=== PATIENT | male | born 1995 | race Hispanic/Latino ===

== ENCOUNTER 2018-11-15 17:32 | Emergency (ER) | payer OTHER ==
[~2018-11-15] VITALS: Ht 160 cm; Wt 114.3 kg
[~2018-11-15 17:32] MED LIST: ATENOLOL PO; CEPHALEXIN PO; GLIMEPIRIDE PO; JENTADUETO PO; WELCHOL PO
--- OUTSIDE RECORDS SUMMARY | 2018-11-15 17:37 | XMS REPORT | Continuity of Care Document ---
Author Author [employer] Organization [employer] Address Unknown Phone Unavailable Care Team Providers Care Electrician Deck Name Role Phone [place] Information [facility] Unavailable Unavailable Problems Problem Status Onset Date Classification Date Reported Comments Source LWR ABD PAIN Active 11/20/2016 [facility] ACUTE APPENDICITIS Active 11/20/2016 [facility] TYPE 2 DIABETES Active 02/25/2011 [facility] LT FEMUR FRACTURE Active 03/31/2002 [facility] DM (Confirmed) Resolved Problem 11/24/2016 [facility] Osteoporosis Resolved Problem 11/24/2016 [facility] UNSPECIFIED ACUTE APPENDICITIS Active [facility] Medications Medication Details Route Status Patient Instructions Ordering Provider Order Date Source neostigmine (ANES) Route: IV, Drug form: INJ, ONCE, Stop date: 11/21/16 15:13:00 CDT Inactive 11/21/2016 [facility] glycopyrrolate (ANES) Route: IV, Drug form: INJ, ONCE, Stop date: 11/21/16 15:13:00 CDT Inactive 11/21/2016 [facility] ondansetron (ANES) Route: IV, Drug form: INJ, ONCE, Stop date: 11/21/16 15:13:00 CDT Inactive 11/21/2016 [facility] acetaminophen (ANES) Route: IV, Drug form: INJ, ONCE, Stop date: 11/21/16 15:13:00 CDT Inactive 11/21/2016 [facility] lidocaine (ANES) Route: IV, Drug form: INJ, ONCE, Stop date: 11/21/16 15:04:00 CDT Inactive 11/21/2016 [facility] propofol (ANES) Route: IV, Drug form: INJ, ONCE, Stop date: 11/21/16 15:04:00 CDT Inactive 11/21/2016 [facility] fentaNYL (ANES) Route: IV, Drug form: INJ, ONCE, Stop date: 11/21/16 15:04:00 CDT Inactive 11/21/2016 [facility] rocuronium (ANES) Route: IV, Drug form: INJ, ONCE, Stop date: 11/21/16 14:54:00 CDT Inactive 11/21/2016 [facility] Acetaminophen 325 MG / Hydrocodone Bitartrate 10 MG Oral Tablet 1 tab, PO, Q4H, PRN Pain Score 4-6, 0 Refill(s) Active 11/21/2016 [facility] Hydromorphone 0.3 mg, 0.3 mL, Route: IVP, Drug form: INJ, Q3H, Dosing Weight 103.182, kg, PRN Pain Score 4-6, Start date: 11/21/16 14:52:00 CDT, Duration: 30 day, Stop date: 12/21/16 14:51:00 CDT Inactive 11/21/2016 [facility] Acetaminophen 325 MG / Hydrocodone Bitartrate 10 MG Oral Tablet 1 tab, Route: PO, Drug Form: TAB, Dosing Weight 103.182, kg, Q4H, PRN Pain Score 7-10, Start date: 11/21/16 14:52:00 CDT, Duration: 30 day, Stop date: 12/21/16 14:51:00 CDTNotes: Do not exceed 4gm/day of acetaminophen. (Same as: [place] 325/10) Inactive 11/21/2016 [facility] Acetaminophen 325 MG / Hydrocodone Bitartrate 5 MG Oral Tablet 1 tab, Route: PO, Drug Form: TAB, Dosing Weight 103.182, kg, Q4H, PRN Pain Score 4-6, Start date: 11/21/16 14:52:00 CDT, Duration: 30 day, Stop date: 12/21/16 14:51:00 CDTNotes: (Same as: [place] 325/5) Do not exceed 4gm/day of acetaminophen. Inactive 11/21/2016 [facility] midazolam (ANES) Route: IV, Drug form: SOLN, ONCE, Stop date: 11/21/16 14:49:00 CDT Inactive 11/21/2016 [facility] LR 1000 mL INJ (ANES) Route: IV, Total Volume: 1,000, Start date: 11/21/16 14:13:00 CDT, Stop date: 11/21/16 15:13:00 CDT Inactive 11/21/2016 [facility] Calcium Chloride 0.0014 MEQ/ML / Potassium Chloride 0.004 MEQ/ML / Sodium Chloride 0.103 MEQ/ML / Sodium Lactate 0.028 MEQ/ML Injectable Solution 1,000 mL, Rate: 25 ml/hr, Infuse over: 40 hr, Route: IV, Dosing Weight 103.182 kg, Total Volume: 1,000, Start date: 11/21/16 13:18:00 CDT, Duration: 30 day, Stop date: 12/21/16 13:17:00 CDT Inactive 11/21/2016 [facility] Insulin regular 8 unit, 0.08 mL, Route: IV, Drug form: INJ, ONCE, Dosing Weight 103.182, kg, Start date: 11/21/16 12:15:00 CDT, Stop date: 11/21/16 12:15:00 CDTNotes: (Same as: Humulin R and NovoLIN R) WASTE: F/P - Black; E - Municipal Trash Bin (Do not shake) Inactive 11/21/2016 [facility] Insulin, Aspart, Human 2 unit, 0.02 mL, Route: SUB-Q, Drug form: SOLN, Sliding Scale, Dosing Weight 103.182, kg, PRN Blood Glucose Results, Start date: 11/21/16 2:59:00 CDT, Duration: 30 day, Stop date: 12/21/16 2:58:00 CDTNotes: Roll in palms of hands gently; Do not shake vigorously. (Same as: NovoLOG) "single patient use only" WASTE: F/P - Black; E - Municipal Trash Bin Stable for 28 days at room temperature. Expires in days from Date Inactive 11/21/2016 [facility] Glucagon 1 mg, Route: IM, Drug form: PDR/INJ, PRN, Dosing Weight 103.182, kg, PRN Blood Glucose Results, Start date: 11/21/16 2:59:00 CDT, Duration: 30 day, Stop date: 12/21/16 2:58:00 CDT Inactive 11/21/2016 [facility] Dextrose 50% Syringe 25 gm, 50 mL, Route: IVP, Drug Form: INJ, Dosing Weight 103.182, kg, PRN, PRN Blood Glucose Results, Start date: 11/21/16 2:59:00 CDT, Duration: 30 day, Stop date: 12/21/16 2:58:00 CDT Inactive 11/21/2016 [facility] Metformin 750 mg, PO, BID, 0 Refill(s) Active 11/21/2016 [facility] Morphine 4 mg, Route: IVP, ONCE, Dosing Weight 103.182, kg, Priority: STAT, Start date: 11/21/16 0:14:00 CDT, Stop date: 11/21/16 0:14:00 CDT Inactive 11/21/2016 [facility] Zosyn 3.375 gm, Route: IV, ABXQ8H, Dosing Weight 103.182, kg, Start date: 11/21/16 0:00:00 CDT, Duration: 30 day, Stop date: 12/20/16 16:00:00 CDT, ABX Indication: Intra-abdominal InfectionNotes: (Same as: Zosyn) Dosing based on Piperacillin component MEDICATION WASTE Product Size: 3375 mg Product Wasted: ___ mg Inactive 11/21/2016 [facility] Saline Flush 0.9% 10 ml, Route: IVP, Drug Form: INJ, Dosing Weight 103.182, kg, PRN, PRN Line Flush, Start date: 11/20/16 23:58:00 CDT, Duration: 30 day, Stop date: 12/20/16 23:57:00 CDTNotes: (Same as: BD Posiflush) No Longer Active 11/21/2016 [facility] Lactated Ringers 1,000 mL 1,000 mL, Rate: 125 ml/hr, Infuse over: 8 hr, Route: IV, Dosing Weight 103.182 kg, Total Volume: 1,000, Start date: 11/20/16 23:58:00 CDT, Duration: 30 day, Stop date: 12/20/16 23:57:00 CDT No Longer Active 11/21/2016 [facility] Ondansetron 4 mg, 2 mL, Route: IVP, Drug form: INJ, Q6H, Dosing Weight 103.182, kg, PRN Nausea & Vomiting, Start date: 11/20/16 23:58:00 CDT, Duration: 30 day, Stop date: 12/20/16 23:57:00 CDTNotes: (Same as: Zofran) MEDICATION WASTE Product Size: 4 mg Product Wasted: ___ mg No Longer Active 11/21/2016 [facility] Morphine 4 mg, 1 mL, Route: IVP, Drug form: SOLN, Q4H, Dosing Weight 103.182, kg, PRN Pain Score 7-10, Start date: 11/20/16 23:58:00 CDT, Stop date: 12/20/16 23:57:00 CDTNotes: (Same as:MORPhine Sulfate) No Longer Active 11/21/2016 [facility] NS (Bolus) IV 1,000 mL, 1,000 ml/hr, Infuse Over: 1 hr, Route: IV, 1,000, Drug form: INJ, ONCE, Priority: STAT, Dosing Weight 103.182 kg, Start date: 11/20/16 21:43:00 CDT, Duration: 1 doses or times, Stop date: 0 11/20/16 21:43:00 CDT Inactive 11/21/2016 [facility] Zofran 4 mg, 2 mL, Route: IVP, Drug form: INJ, ONCE, Dosing Weight 103.182, kg, Priority: STAT, Start date: 11/20/16 21:43:00 CDT, Stop date: 11/20/16 21:43:00 CDTNotes: (Same as: Zofran) MEDICATION WASTE Product Size: 4 mg Product Wasted: ___ mg Inactive 11/21/2016 [facility] Morphine 4 mg, 1 mL, Route: IVP, Drug form: SOLN, ONCE, Dosing Weight 103.182, kg, Priority: STAT, Start date: 11/20/16 21:42:00 CDT, Stop date: 11/20/16 21:42:00 CDTNotes: (Same as:MORPhine Sulfate) Inactive 11/21/2016 [facility] Saline Flush 0.9% 10 mL, Route: IVP, Drug Form: INJ, Dosing Weight 103.182, kg, PRN, PRN Line Flush, Start date: 11/20/16 20:16:00 CDT, Duration: 30 day, Stop date: 12/20/16 20:15:00 CDTNotes: (Same as: BD Posiflush) No Longer Active 11/21/2016 [facility] Allergies, Adverse Reactions, Alerts No Known Medication Allergies Immunizations No Data Provided for This Section Results Order Name Results Value Reference Range Date Interpretation Comments Source IMMUNOLOGY Hep B Core IgM Negative *NA* (11/21/16 5:57 AM) Negative 11/21/2016 [facility] IMMUNOLOGY Hep A IgM Negative *NA* (11/21/16 5:57 AM) Negative 11/21/2016 [facility] Hep C Ab Negative *NA* (11/21/16 5:57 AM) 11/21/2016 [facility] Hep Bs Ag Negative *NA* (11/21/16 5:57 AM) Negative 11/21/2016 [facility] URINE AND STOOL UA Urobilinogen <=1.0 mg/dL 0.1 - 1.0 11/21/2016 [facility] URINE AND STOOL UA Color Ltyellow 11/21/2016 [facility] URINE AND STOOL UA Blood Negative (11/20/16 11:09 PM) Negative 11/21/2016 [facility] URINE AND STOOL UA Nitrite Negative (11/20/16 11:09 PM) Negative 11/21/2016 [facility] URINE AND STOOL UA Ketones 80 mg/dL Negative mg/dL 11/21/2016 [facility] URINE AND STOOL UA Bili Negative *NA* (11/20/16 11:09 PM) Negative 11/21/2016 [facility] URINE AND STOOL UA Glucose 500 mg/dL Negative mg/dL 11/21/2016 [facility] URINE AND STOOL UA Sq Epi Occasional /LPF Few /LPF 11/21/2016 [facility] URINE AND STOOL UA WBC 1 0 - 5 11/21/2016 [facility] URINE AND STOOL UA Leuk Est Negative (11/20/16 11:09 PM) Negative 11/21/2016 [facility] URINE AND STOOL UA Bacteria Occasional /HPF None Seen /HPF 11/21/2016 [facility] URINE AND STOOL UA Protein 100 mg/dL Negative mg/dL 11/21/2016 [facility] URINE AND STOOL UA pH 5.0 5.0 - 8.0 11/21/2016 [facility] URINE AND STOOL UA Spec Grav 1.036 <=1.030 11/21/2016 [facility] URINE AND STOOL UA Turbidity Clear (11/20/16 11:09 PM) Clear 11/21/2016 [facility] CHEM PANEL eGFR 140 11/21/2016 Result Comment: The eGFR is calculated using the CKD-EPI formula. In most young, healthy individuals the eGFR will be >90 mL/min/1.73m2. The eGFR declines with age. An eGFR of 60-89 may be normal in some populations, particularly the elderly, for whom the CKD-EPI formula has not been extensively validated. Use of the eGFR is not recommended in the following populations:

Individuals with unstable creatinine concentrations, including patients and those with serious co-morbid conditions.

Patients with extremes in muscle mass or diet.

The data above are obtained from the National Kidney Disease Education Program (NKDEP) which additionally recommends that when the eGFR is used in patients with extremes of body mass index for purposes of drug dosing, the eGFR should be multiplied by the estimated BMI. [facility] CHEM PANEL Glucose Lvl 300 70 - 99 11/21/2016 [facility] CHEM PANEL BUN 7 7 - 22 11/21/2016 [facility] CHEM PANEL Sodium Lvl 136 135 - 145 11/21/2016 [facility] CHEM PANEL Potassium Lvl 4.1 3.5 - 5.1 11/21/2016 [facility] CHEM PANEL Calcium Lvl 9.3 8.5 - 10.5 11/21/2016 [facility] CHEM PANEL CO2 22 24 - 32 11/21/2016 [facility] CHEM PANEL Creatinine Lvl 0.62 0.50 - 1.40 11/21/2016 [facility] CHEM PANEL Albumin Lvl 3.9 3.5 - 5.0 11/21/2016 [facility] CHEM PANEL Chloride Lvl 103 95 - 109 11/21/2016 [facility] CHEM PANEL AST 45 0 - 37 11/21/2016 [facility] CHEM PANEL ALT 185 0 - 65 11/21/2016 [facility] CHEM PANEL Alk Phos 131 39 - 136 11/21/2016 [facility] CHEM PANEL Total Protein 8.4 6.4 - 8.4 11/21/2016 [facility]M PANEL Bili Total 1.8 0.2 - 1.3 11/21/2016 [facility] CHEM PANEL AGAP 15.1 10.0 - 20.0 11/21/2016 [facility]M PANEL B/C Ratio 11 6 - 25 11/21/2016 [facility] PAN[facility] A/G Ratio 0.9 0.7 - 1.6 11/21/2016 [facility] CHEM PANEL Globulin 4.5 2.7 - 4.2 11/21/2016 [facility] CHEM PANEL Lipase Lvl 85 73 - 393 11/21/2016 [facility] CHEM PANEL Magnesium Lvl 2.0 1.8 - 2.4 11/21/2016 [facility] HEMATOLOGY Microcyte 1+ *ABN* (11/20/16 9:07 PM) None Seen 11/21/2016 [facility] Segs-Bands # 11.6 1.5 - 8.1 11/21/2016 [facility] Lymphocytes # 0.8 1.0 - 5.5 11/21/2016 [facility] HEMATOLOGY Monocytes # 0.5 0.0 - 0.8 11/21/2016 [facility] RBC Morph Normal (11/20/16 9:07 PM) 11/21/2016 [facility] Basophils 0.2 0.0 - 1.0 11/21/2016 [facility] Lymphocytes 6.3 20.0 - 40.0 11/21/2016 [facility] Monocytes 3.5 2.0 - 12.0 11/21/2016 [facility] Plt Morph Normal (11/20/16 9:07 PM) 11/21/2016 [facility] Segs 90.0 45.0 - 75.0 11/21/2016 [facility] MCH 25.1 27.0 - 31.0 11/21/2016 [facility] Hct 50.7 42.0 - 54.0 11/21/2016 [facility] MCHC 34.0 32.0 - 36.0 11/21/2016 [facility] MCV 73.9 80.0 - 94.0 11/21/2016 [facility] Hgb 17.2 14.0 - 18.0 11/21/2016 [facility] MPV 9.7 7.4 - 10.4 11/21/2016 [facility] RDW 14.2 11.5 - 14.5 11/21/2016 [facility] Platelet 264 133 - 450 11/21/2016 [facility] RBC 6.87 4.70 - 6.10 11/21/2016 [facility] WBC 12.9 3.7 - 10.4 11/21/2016 [facility] Pathology Reports No Data Provided for This Section Diagnostic Reports Report Value Date Source ED Abdomen/Pelvis IV contrast only CT EXAM: CT ABDOMEN AND PELVIS WITH CONTRAST DATE: 11/20/2016 8:16 PM CDT INDICATION: Abdominal pain. COMPARISON: None. TECHNIQUE: Helical CT imaging of the abdomen and pelvis performed from lung bases through the lesser trochanters following the administration of intravenous contrast. Axial, sagittal and coronal multiplanar reconstructions provided. IV contrast: [address] Radiation Dose: JKJ=2628.65 mGy-cm FINDINGS: LOWER CHEST: The lung bases are clear of focal consolidation, pleural effusions, and pneumothorax. The heart is unremarkable without evidence for a pericardial effusion. LIVER: Diffuse fatty infiltration of the liver is identified. GALLBLADDER/BILIARY: Unremarkable. PANCREAS: Unremarkable SPLEEN: Unremarkable ADRENALS: Unremarkable KIDNEYS AND URETERS: Unremarkable BLADDER: Unremarkable STOMACH: Unremarkable. BOWEL: The small bowel is normal in course and caliber without focal wall thickening or evidence for obstruction. The colon is unremarkable. APPENDIX: There is a fluid-filled distended appendix measuring 15 mm in maximum diameter. Multiple appendicoliths are visualized within the lumen, the largest of which measures 9 mm within the base of the appendix on series 2 image 78. Mild inflammatory stranding is visualized. PELVIS: No pelvic masses are identified. PERITONEUM: No ascites or free air. LYMPH NODES: Unremarkable. VASCULAR: Unremarkable. 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 Prior postsurgical changes of the bilateral proximal femurs. No acute osseous abnormality is identified. SOFT TISSUES: Unremarkable IMPRESSION: 1. Fluid distention of the appendix with multiple appendicoliths within the lumen, the largest of which measures 9 mm at the base of the appendix. Findings are likely compatible with mucocele formation of the appendix although an underlying mucinous tumor cannot be fully excluded. Minimal surrounding inflammatory changes are suggestive of a superimposed acute appendicitis. 2. Diffuse fatty infiltration of the liver. SL: [id number] 11/20/2016 [facility] Consultation Notes No Data Provided for This Section Discharge Summaries No Data Provided for This Section History and Physicals No Data Provided for This Section Vital Signs Vital Sign Value Date Comments Source Systolic (mm Hg) 132 11/22/2016 [facility] Diastolic (mm Hg) 84 11/22/2016 [facility] Respitory Rate 16 11/22/2016 [facility] Heart Rate 101 11/22/2016 [facility] Temperature Oral (F) 98.9 F 11/22/2016 [facility] Respitory Rate 14 11/22/2016 [facility] Temperature Oral (F) 99.3 F 11/21/2016 [facility] Heart Rate 104 11/21/2016 [facility] Systolic (mm Hg) 108 11/21/2016 [facility] Diastolic (mm Hg) 64 11/21/2016 [facility] Respitory Rate 18 11/21/2016 [facility] Systolic (mm Hg) 123 11/21/2016 [facility] Diastolic (mm Hg) 77 11/21/2016 [facility] Heart Rate 130 11/21/2016 [facility] Temperature Oral (F) 98.3 F 11/21/2016 [facility] Height 160.02 cm 11/21/2016 [facility] BMI Calculated 40.3 11/21/2016 [facility] Weight 103.182 11/21/2016 [facility] BMI Calculated 40.3 11/21/2016 [facility] Weight 103.182 11/21/2016 [facility] Height 160.02 cm 11/21/2016 [facility] Encounters Location Location Details Encounter Type Encounter Number Reason For Visit Attending Provider ADM Date DC Date Status Source [facility] [place] [id number] TYPE 2 DIABETES ROSSY KENNEDY 03/01/2011 Active [facility] Observation [id number] Jamal Fowler 11/21/2016 11/22/2016 [facility] Procedures Procedure Code Date Perfomer Comments Source Leg repair<sup>1</sup> [id number] 10 surgeries to repair fractures on left leg and 5 surgeries on the right [facility] Assessment and Plan Assessment and Plan Date Source Extracted from:Title: Appendicitis Admission H&P * Author: Jamal Fowler MD Date: 11/21/16 Impression and Plan Diagnosis Acute appendicitis ([id number] K35.80, Working, Medical). Orders He has started getting IV antibiotics and crystalloid. I have discussed the risks, benefits and alternatives to appendectomy. He gives informed consent for the operation which we will do as soon as the OR is available. I discussed the expected hospital stay and recovery process.. 11/22/2016 [facility] Plan of Care No Data Provided for This Section Social History Social History Date Source Social History TypeResponse Smoking Status Never smoker; Exposure to Tobacco Smoke None; Cigarette Smoking Last 365 Days No; Reg Smoking Cessation Counseling No 11/21/2016 [facility] Family History No Data Provided for This Section Advance Directives No Data Provided for This Section Functional Status No Data Provided for This Section
--- OUTSIDE RECORDS SUMMARY | 2018-11-15 17:37 | XMS REPORT | Summary of Care ---
Author Author [facility] Organization [facility] Address Unknown Phone Unavailable Encounter HQ Danna(DENG) [id number] Date(s): 11/20/16 - 11/21/16 [facility] [address] [place] [address]- Discharge Disposition: Home or Self Care Attending Physician: Jamal Fowler MD Admitting Physician: Jamal Fowler MD Vital Signs 1 2 3 Most recent to oldest [Reference Range]: 160.02 cm (11/21/16 1:24 AM) 160.02 cm (11/20/16 8:08 PM) Height 98.9 DegF (11/21/16 7:50 PM) 99.3 DegF *HI* (11/21/16 4:09 PM) 98.3 DegF (11/21/16 11:24 AM) Temperature Oral [96.4-99.1 DegF] 132/84 mmHg (11/21/16 7:50 PM) 108/64 mmHg (11/21/16 4:09 PM) 123/77 mmHg (11/21/16 3:45 PM) Blood Pressure [90-140/60-90 mmHg] 16 BRMIN (11/21/16 7:50 PM) 14 BRMIN (11/21/16 7:35 PM) 18 BRMIN (11/21/16 4:09 PM) Respiratory Rate [14-20 BRMIN] 101 bpm *HI* (11/21/16 7:50 PM) 104 bpm *HI* (11/21/16 4:09 PM) 130 bpm *HI* (11/21/16 1:14 PM) Peripheral Pulse Rate [60-100 bpm] 103.182 kg (11/21/16 1:24 AM) 103.182 kg (11/20/16 8:08 PM) Weight 40.3 m2 (11/21/16 1:24 AM) 40.3 m2 (11/20/16 8:08 PM) Body Mass Index Problem List Condition Effective Dates Status Health Status Informant DM (diabetes Resolved mellitus)(Confirmed) Osteoporosis(Confirm Resolved ed) Allergies, Adverse Reactions, Alerts Substance Reaction Severity Status NKDA Active Medications acetaminophen (ANES) Route: IV, Drug form: INJ, ONCE, Stop date: 11/21/16 15:13:00 CDT Start Date: 11/21/16 Stop Date: 11/21/16 Status: Completed acetaminophen-hydrocodone 325 mg-10 mg oral tablet 1 tab, Route: PO, Drug Form: TAB, Dosing Weight 103.182, kg, Q4H, PRN Pain Score 7-10, Start date: 11/21/16 14:52:00 CDT, Duration: 30 day, Stop date: 12/21/16 14:51:00 CDT Notes: Do not exceed 4gm/day of acetaminophen. (Same as: Williams 325/10) Start Date: 11/21/16 Stop Date: 11/21/16 Status: Discontinued acetaminophen-hydrocodone 325 mg-10 mg oral tablet 1 tab, PO, Q4H, PRN Pain Score 4-6, 0 Refill(s) Start Date: 11/21/16 Status: Ordered acetaminophen-hydrocodone 325 mg-5 mg oral tablet 1 tab, Route: PO, Drug Form: TAB, Dosing Weight 103.182, kg, Q4H, PRN Pain Score 4-6, Start date: 11/21/16 14:52:00 CDT, Duration: 30 day, Stop date: 12/21/16 1 4:51:00 CDT Notes: (Same as: Williams 325/5) Do not exceed 4gm/day of acetaminophen. Start Date: 11/21/16 Stop Date: 11/21/16 Status: Discontinued Dextrose 50% Syringe 25 gm, 50 mL, Route: IVP, Drug Form: INJ, Dosing Weight 103.182, kg, PRN, PRN Bl ood Glucose Results, Start date: 11/21/16 2:59:00 CDT, Duration: 30 day, Stop da te: 12/21/16 2:58:00 CDT Start Date: 11/21/16 Stop Date: 11/21/16 Status: Discontinued Dextrose 50% Syringe 12.5 gm, 25 mL, Route: IVP, Drug Form: INJ, Dosing Weight 103.182, kg, PRN, PRN Blood Glucose Results, Start date: 11/21/16 2:59:00 CDT, Duration: 30 day, Stop date: 12/21/16 2:58:00 CDT Start Date: 11/21/16 Stop Date: 11/21/16 Status: Discontinued fentaNYL (ANES) Route: IV, Drug form: INJ, ONCE, Stop date: 11/21/16 15:04:00 CDT Start Date: 11/21/16 Stop Date: 11/21/16 Status: Completed glucagon 1 mg, Route: IM, Drug form: PDR/INJ, PRN, Dosing Weight 103.182, kg, PRN Blood G lucose Results, Start date: 11/21/16 2:59:00 CDT, Duration: 30 day, Stop date: 0 12/21/16 2:58:00 CDT Start Date: 11/21/16 Stop Date: 11/21/16 Status: Discontinued glycopyrrolate (ANES) Route: IV, Drug form: INJ, ONCE, Stop date: 11/21/16 15:13:00 CDT Start Date: 11/21/16 Stop Date: 11/21/16 Status: Completed hydromorphone 0.3 mg, 0.3 mL, Route: IVP, Drug form: INJ, Q3H, Dosing Weight 103.182, kg, PRN Pain Score 4-6, Start date: 11/21/16 14:52:00 CDT, Duration: 30 day, Stop date: 12/21/16 14:51:00 CDT Start Date: 11/21/16 Stop Date: 11/21/16 Status: Discontinued insulin aspart 2 unit, 0.02 mL, Route: SUB-Q, Drug form: SOLN, Sliding Scale, Dosing Weight 103 .182, kg, PRN Blood Glucose Results, Start date: 11/21/16 2:59:00 CDT, Duration: 30 day, Stop date: 12/21/16 2:58:00 CDT Notes: Roll in palms of hands gently; Do not shake vigorously. (Same as: Juana Parrish)"single patient use only"WASTE: F/P - Black; E - Municipal Trash Bin Stable f or 28 days at room temperature.Expires in days from Date Start Date: 11/21/16 Stop Date: 11/21/16 Status: Discontinued insulin aspart 4 unit, 0.04 mL, Route: SUB-Q, Drug form: SOLN, Sliding Scale, Dosing Weight 103 .182, kg, PRN Blood Glucose Results, Start date: 11/21/16 2:59:00 CDT, Duration: 30 day, Stop date: 12/21/16 2:58:00 CDT Notes: Roll in palms of hands gently; Do not shake vigorously. (Same as: Juana Parrish)"single patient use only"WASTE: F/P - Black; E - Municipal Trash Bin Stable f or 28 days at room temperature.Expires in days from Date Start Date: 11/21/16 Stop Date: 11/21/16 Status: Discontinued insulin aspart 6 unit, 0.06 mL, Route: SUB-Q, Drug form: SOLN, Sliding Scale, Dosing Weight 103 .182, kg, PRN Blood Glucose Results, Start date: 11/21/16 2:59:00 CDT, Duration: 30 day, Stop date: 12/21/16 2:58:00 CDT Notes: Roll in palms of hands gently; Do not shake vigorously. (Same as: Juana Parrish)"single patient use only"WASTE: F/P - Black; E - Municipal Trash Bin Stable f or 28 days at room temperature.Expires in days from Date Start Date: 11/21/16 Stop Date: 11/21/16 Status: Discontinued insulin aspart 8 unit, 0.08 mL, Route: SUB-Q, Drug form: SOLN, Sliding Scale, Dosing Weight 103 .182, kg, PRN Blood Glucose Results, Start date: 11/21/16 2:59:00 CDT, Duration: 30 day, Stop date: 12/21/16 2:58:00 CDT Notes: Roll in palms of hands gently; Do not shake vigorously. (Same as: NovoLO G)"single patient use only"WASTE: F/P - Black; E - Municipal Trash Bin Stable f or 28 days at room temperature.Expires in days from Date Start Date: 11/21/16 Stop Date: 11/21/16 Status: Discontinued insulin aspart 10 unit, 0.1 mL, Route: SUB-Q, Drug form: SOLN, Sliding Scale, Dosing Weight 103 .182, kg, PRN Blood Glucose Results, Start date: 11/21/16 2:59:00 CDT, Duration: 30 day, Stop date: 12/21/16 2:58:00 CDT Notes: Roll in palms of hands gently; Do not shake vigorously. (Same as: NovoLO G)"single patient use only"WASTE: F/P - Black; E - Municipal Trash Bin Stable f or 28 days at room temperature.Expires in days from Date Start Date: 11/21/16 Stop Date: 11/21/16 Status: Discontinued Insulin regular 8 unit, 0.08 mL, Route: IV, Drug form: INJ, ONCE, Dosing Weight 103.182, kg, Sta rt date: 11/21/16 12:15:00 CDT, Stop date: 11/21/16 12:15:00 CDT Notes: (Same as: Humulin R and NovoLIN R)WASTE: F/P - Black; E - Municipal Trash Bin (Do not shake) Start Date: 11/21/16 Stop Date: 11/21/16 Status: Completed Lactated Ringers 1,000 mL 1,000 mL, Rate: 125 ml/hr, Infuse over: 8 hr, Route: IV, Dosing Weight 103.182 k g, Total Volume: 1,000, Start date: 11/20/16 23:58:00 CDT, Duration: 30 day, Sto p date: 12/20/16 23:57:00 CDT Start Date: 11/20/16 Stop Date: 11/21/16 Status: Discontinued Lactated Ringers Injection IV 1000 mL 1,000 mL, Rate: 25 ml/hr, Infuse over: 40 hr, Route: IV, Dosing Weight 103.182 k g, Total Volume: 1,000, Start date: 11/21/16 13:18:00 CDT, Duration: 30 day, Sto p date: 12/21/16 13:17:00 CDT Start Date: 11/21/16 Stop Date: 11/21/16 Status: Discontinued lidocaine (ANES) Route: IV, Drug form: INJ, ONCE, Stop date: 11/21/16 15:04:00 CDT Start Date: 11/21/16 Stop Date: 11/21/16 Status: Completed LR 1000 mL INJ (ANES) Route: IV, Total Volume: 1,000, Start date: 11/21/16 14:13:00 CDT, Stop date: 15:13:00 CDT Start Date: 11/21/16 Stop Date: 11/21/16 Status: Completed metFORMIN 750 mg, PO, BID, 0 Refill(s) Start Date: 11/21/16 Status: Ordered midazolam (ANES) Route: IV, Drug form: SOLN, ONCE, Stop date: 11/21/16 14:49:00 CDT Start Date: 11/21/16 Stop Date: 11/21/16 Status: Completed morphine Sulfate 4 mg, Route: IVP, ONCE, Dosing Weight 103.182, kg, Priority: STAT, Start date: 0 11/21/16 0:14:00 CDT, Stop date: 11/21/16 0:14:00 CDT Start Date: 11/21/16 Stop Date: 11/21/16 Status: Completed morphine Sulfate 4 mg, 1 mL, Route: IVP, Drug form: SOLN, Q4H, Dosing Weight 103.182, kg, PRN Montez n Score 7-10, Start date: 11/20/16 23:58:00 CDT, Stop date: 12/20/16 23:57:00 CD T Notes: (Same as:MORPhine Sulfate) Start Date: 11/20/16 Stop Date: 11/21/16 Status: Discontinued morphine Sulfate 4 mg, 1 mL, Route: IVP, Drug form: SOLN, ONCE, Dosing Weight 103.182, kg, Priori ty: STAT, Start date: 11/20/16 21:42:00 CDT, Stop date: 11/20/16 21:42:00 CDT Notes: (Same as:MORPhine Sulfate) Start Date: 11/20/16 Stop Date: 11/20/16 Status: Completed neostigmine (ANES) Route: IV, Drug form: INJ, ONCE, Stop date: 11/21/16 15:13:00 CDT Start Date: 11/21/16 Stop Date: 11/21/16 Status: Completed NS (Bolus) IV 1,000 mL, 1,000 ml/hr, Infuse Over: 1 hr, Route: IV, 1,000, Drug form: INJ, ONCE , Priority: STAT, Dosing Weight 103.182 kg, Start date: 11/20/16 21:43:00 CDT, D uration: 1 doses or times, Stop date: 11/20/16 21:43:00 CDT Start Date: 11/20/16 Stop Date: 11/20/16 Status: Completed ondansetron 4 mg, 2 mL, Route: IVP, Drug form: INJ, Q6H, Dosing Weight 103.182, kg, PRN Naus ea & Vomiting, Start date: 11/20/16 23:58:00 CDT, Duration: 30 day, Stop date: 12/20/16 23:57:00 CDT Notes: (Same as: Zofran) MEDICATION WASTE Product Size: 4 mgProduct Was cristy: ___ mg Start Date: 11/20/16 Stop Date: 11/21/16 Status: Discontinued ondansetron (ANES) Route: IV, Drug form: INJ, ONCE, Stop date: 11/21/16 15:13:00 CDT Start Date: 11/21/16 Stop Date: 11/21/16 Status: Completed propofol (ANES) Route: IV, Drug form: INJ, ONCE, Stop date: 11/21/16 15:04:00 CDT Start Date: 11/21/16 Stop Date: 11/21/16 Status: Completed rocuronium (ANES) Route: IV, Drug form: INJ, ONCE, Stop date: 11/21/16 14:54:00 CDT Start Date: 11/21/16 Stop Date: 11/21/16 Status: Completed Saline Flush 0.9% 10 ml, Route: IVP, Drug Form: INJ, Dosing Weight 103.182, kg, PRN, PRN Line Flus h, Start date: 11/20/16 23:58:00 CDT, Duration: 30 day, Stop date: 12/20/16 23:5 7:00 CDT Notes: (Same as: BD Posiflush) Start Date: 11/20/16 Stop Date: 11/21/16 Status: Discontinued Saline Flush 0.9% 10 mL, Route: IVP, Drug Form: INJ, Dosing Weight 103.182, kg, PRN, PRN Line Flus h, Start date: 11/20/16 20:16:00 CDT, Duration: 30 day, Stop date: 12/20/16 20:1 5:00 CDT Notes: (Same as: BD Posiflush) Start Date: 11/20/16 Stop Date: 11/21/16 Status: Discontinued Zofran 4 mg, 2 mL, Route: IVP, Drug form: INJ, ONCE, Dosing Weight 103.182, kg, Priorit y: STAT, Start date: 11/20/16 21:43:00 CDT, Stop date: 11/20/16 21:43:00 CDT Notes: (Same as: Zofran) MEDICATION WASTE Product Size: 4 mgProduct Was cristy: ___ mg Start Date: 11/20/16 Stop Date: 11/20/16 Status: Completed Zosyn + sodium chloride 0.9% INJ 100 mL 3.375 gm, Route: IV, ABXQ8H, Dosing Weight 103.182, kg, Start date: 11/21/16 0:0 0:00 CDT, Duration: 30 day, Stop date: 12/20/16 16:00:00 CDT, ABX Indication: In tra-abdominal Infection Notes: (Same as: Zosyn)Dosing based on Piperacillin component MEDICATION WA LADARIUS Product Size: 3375 mgProduct Wasted: ___ mg Start Date: 11/21/16 Stop Date: 11/21/16 Status: Discontinued Results ELECTROLYTES Most recent to 1 oldest [Reference Range]: Sodium Lvl [135-145 136 mEq/L mEq/L] (11/20/16 9:07 PM) Potassium Lvl 4.1 mEq/L [3.5-5.1 mEq/L] (11/20/16 9:07 PM) Chloride Lvl [95-109 103 mEq/L mEq/L] (11/20/16 9:07 PM) CO2 [24-32 mEq/L] 22 mEq/L *LOW* (11/20/16 9:07 PM) AGAP [10.0-20.0 15.1 mEq/L mEq/L] (11/20/16 9:07 PM) CHEM PANEL Most recent to 1 oldest [Reference Range]: Creatinine Lvl 0.62 mg/dL [0.50-1.40 mg/dL] (11/20/16 9:07 PM) eGFR 140 mL/min/1.73m2 1 *NA* (11/20/16:07 PM) BUN [7-22 mg/dL] 7 mg/dL (11/20/16 9:07 PM) B/C Ratio [6-25] 11 (11/20/16 9:07 PM) Glucose Lvl [70-99 300 mg/dL mg/dL] *HI* (11/20/16 9:07 PM) Total Protein 8.4 g/dL [6.4-8.4 g/dL] (11/20/16 9:07 PM) Albumin Lvl [3.5-5.0 3.9 g/dL g/dL] (11/20/16 9:07 PM) Globulin [2.7-4.2 4.5 g/dL g/dL] *HI* (11/20/16 9:07 PM) A/G Ratio [0.7-1.6] 0.9 (11/20/16 9:07 PM) Calcium Lvl 9.3 mg/dL [8.5-10.5 mg/dL] (11/20/16 9:07 PM) Magnesium Lvl 2.0 mg/dL [1.8-2.4 mg/dL] (11/20/16 9:07 PM) ALT [0-65 unit/L] 185 unit/L *HI* (11/20/16 9:07 PM) AST [0-37 unit/L] 45 unit/L *HI* (11/20/16 9:07 PM) Alk Phos [39-136 131 unit/L unit/L] (11/20/16 9:07 PM) Bili Total [0.2-1.3 1.8 mg/dL mg/dL] *HI* (11/20/16 9:07 PM) Lipase Lvl [73-393 85 unit/L unit/L] (11/20/16 9:07 PM) 1Result Comment: The eGFR is calculated using the [...] from the National Kidney Disease Education Program ( NKDEP) which additionally recommends that when the eGFR is used in patients with extremes of body mass index for purposes of drug dosing, the eGFR should be mul tiplied by the estimated BMI. URINE AND STOOL Most recent to 1 oldest [Reference Range]: UA Turbidity [Clear] Clear (11/20/16 11:09 PM) UA Color Ltyellow *NA* (11/20/16 11:09 PM) UA pH [5.0-8.0] 5.0 (11/20/16 11:09 PM) UA Spec Grav 1.036 [<=1.030] *HI* (11/20/16 11:09 PM) UA Glucose [Negative 500 mg/dL mg/dL] *ABN* (11/20/16 11:09 PM) UA Blood [Negative] Negative (11/20/16 11:09 PM) UA Ketones [Negative 80 mg/dL mg/dL] *ABN* (11/20/16 11:09 PM) UA Protein [Negative 100 mg/dL mg/dL] *ABN* (11/20/16 11:09 PM) UA Urobilinogen <=1.0 mg/dL [0.1-1.0 mg/dL] *NA* (11/20/16 11:09 PM) UA Bili [Negative] Negative *NA* (11/20/16 11:09 PM) UA Leuk Est Negative [Negative] (11/20/16 11:09 PM) UA Nitrite Negative [Negative] (11/20/16 11:09 PM) UA WBC [0-5 /HPF] 1 /HPF (11/20/16 11:09 PM) UA Bacteria [None Occasional /HPF Seen /HPF] *NA* (11/20/16 11:09 PM) UA Sq Epi [Few /LPF] Occasional /LPF *NA* (11/20/16 11:09 PM) IMMUNOLOGY Most recent to 1 oldest [Reference Range]: Hep Bs Ag [Negative] Negative *NA* (11/21/16 5:57 AM) Hep B Core IgM Negative [Negative] *NA* (11/21/16 5:57 AM) Hep A IgM [Negative] Negative *NA* (11/21/16 5:57 AM) Hep C Ab Negative *NA* (11/21/16 5:57 AM) HEMATOLOGY Most recent to 1 oldest [Reference Range]: WBC [3.7-10.4 K/CMM] 12.9 K/CMM *HI* (11/20/16 9:07 PM) RBC [4.70-6.10 6.87 M/CMM M/CMM] *HI* (11/20/16 9:07 PM) Hgb [14.0-18.0 g/dL] 17.2 g/dL (11/20/16 9:07 PM) Hct [42.0-54.0 %] 50.7 % (11/20/16 9:07 PM) MCV [80.0-94.0 fL] 73.9 fL *LOW* (11/20/16 9:07 PM) MCH [27.0-31.0 pg] 25.1 pg *LOW* (11/20/16 9:07 PM) MCHC [32.0-36.0 34.0 g/dL g/dL] (11/20/16 9:07 PM) RDW [11.5-14.5 %] 14.2 % (11/20/16 9:07 PM) Platelet [133-450 264 K/CMM K/CMM] (11/20/16 9:07 PM) MPV [7.4-10.4 fL] 9.7 fL (11/20/16 9:07 PM) Segs [45.0-75.0 %] 90.0 % *HI* (11/20/16 9:07 PM) Lymphocytes 6.3 % [20.0-40.0 %] *LOW* (11/20/16 9:07 PM) Monocytes [2.0-12.0 3.5 % %] (11/20/16 9:07 PM) Basophils [0.0-1.0 0.2 % %] (11/20/16 9:07 PM) Segs-Bands # 11.6 K/CMM [1.5-8.1 K/CMM] *HI* (11/20/16 9:07 PM) Lymphocytes # 0.8 K/CMM [1.0-5.5 K/CMM] *LOW* (11/20/16 9:07 PM) Monocytes # [0.0-0.8 0.5 K/CMM K/CMM] (11/20/16 9:07 PM) RBC Morph Normal (11/20/16 9:07 PM) Microcyte [None 1+ Seen] *ABN* (11/20/16 9:07 PM) Plt Morph Normal (11/20/16 9:07 PM) Immunizations No data available for this section Procedures Procedure Date Related Diagnosis Body Site Leg repair1 110 surgeries to repair fractures on left leg and 5 surgeries on the right Social History Social History Type Response Smoking Status Never smoker; Exposure to Tobacco Smoke None; Cigarette Smoking Last 365 Days No; Reg Smoking Cessation Counseling No Assessment and Plan Extracted from: Title: Appendicitis Admission H&P * Author: Jamal Fowler MD Date: 11/21/16 Impression and Plan Diagnosis Acute appendicitis ([id number] K35.80, Working, Medical). Orders He has started getting IV antibiotics and crystalloid. I have discussed the risks, benefits and alternatives to appendectomy. He gives informed consent for the operation which we will do as soon as the OR is available. I discussed the expected hospital stay and recovery process..
--- OUTSIDE RECORDS SUMMARY | 2018-11-15 17:37 | XMS REPORT | CCD ---
Author Author Auto Generated Organization [facility] Address Unknown Phone Unavailable Care Team Providers Care Molding Associate Name Role Phone PCP, None CP Unavailable Cabrera Haas RP Becki Alford CP ChartServer, Login CP Unavailable David Stephens CP Unavailable Gabriella Gilmore CP Unavailable Allergies, Adverse Reactions, Alerts Substance Reaction Status NKDA ?? Active
--- NOTE | 2018-11-15 18:25 | Diagnostic Imaging Report ---
CT BRAIN WO HISTORY: Facial numbness, drooping COMPARISON: None. TECHNIQUE: Noncontrast axial scans were obtained from skull base to the vertex. Coronal and sagittal reconstructions obtained from the axial data. One or more of the following dose reduction techniques were used: Automated exposure control, adjustment of the mA and/or kV according to patient size, and/or utilization of iterative reconstruction technique. DISCUSSION: Scalp/Skull: Unremarkable. Brain sulci: Appropriate for patient's age. Ventricles: Normal in size and configuration. No hydrocephalus. Extra-axial spaces: Focal prominence of the subarachnoid space posterior to the left cerebellar vermis, measuring up to 1.5 cm in transverse dimension, may be due to a small arachnoid cyst; there is no significant mass effect. No additional masses or fluid collections. Parenchyma: No abnormal densities. No mass, hemorrhage, or large vascular territory acute infarct. Dural sinuses: No abnormal densities. Sellar/Suprasellar region: Intact. Skull base: Intact. Incidental findings: None. IMPRESSION: 1. No acute intracranial abnormalities. 2. Incidental small left retrocerebellar cyst. Signed by: Dr. Rickey Joseph M.D. on 11/15/2018 6:22 PM
[2018-11-15 19:19] VITALS: BP 120/84
== END 2018-11-15 19:37 | disposition home or self-care (01) ==
LOC: ER 17:32
DX: G51.0 Bell's palsy (principal); E11.9 Type 2 diabetes mellitus without complications; M81.0 Age-related osteoporosis without current pathological fracture
CPT/HCPCS: 70450; 99283